=== PATIENT | female | born 1980 | race Caucasian/White ===

== ENCOUNTER → 2017-07-13 18:24 | Outpatient (CLI) | payer OTHER, SELFPAY | PROVIDERS: PCP Family Medicine; Visit Provider Obstetrics & Gynecology | DX: O60.03 Preterm labor without delivery, third trimester (principal); Z3A.33 33 weeks gestation of pregnancy | CPT/HCPCS: 59025; 81001; 99058; G0378 ==

== ENCOUNTER 2017-08-27 05:29 | Outpatient (CLI) | payer OTHER, SELFPAY | END 2017-08-27 06:45 | disposition home or self-care (01) | LOC: OB 08:53 | PROVIDERS: PCP Family Medicine; Visit Provider Family Medicine | DX: Z03.71 Encounter for suspected problem with amniotic cavity and membrane ruled out (principal); J45.909 Unspecified asthma, uncomplicated; E07.9 Disorder of thyroid, unspecified; Z3A.39 39 weeks gestation of pregnancy | CPT/HCPCS: 59025; 84112; G0378; G0379 ==

== ENCOUNTER 2017-08-29 05:50 | Inpatient (IN) | payer OTHER, SELFPAY ==
--- NOTE | 2017-08-29 | PATH_ITS ---
[facility] Accession Number: [id number] . 01 Material submitted: . BILATERAL FALLOPIAN TUBES . 02 Diagnosis: Bilateral Fallopian Tubes (Sterilization Procedure): No significant pathologic change. Single small unilateral paratubal cyst, negative for atypia. MRV/09/02/2017 . 02 Electronically signed: . Edy Medina MD, Pathologist NPI- [id number] . 01 Gross description: . The specimen is received in a container of formalin labeled with the patient's name, designated bilateral fallopian tubes. The specimen consists of what appears to be two complete fallopian tubes, both with fimbriated ends. Neither are identified as to right or left. The first fallopian tube measures 9.0 cm long with an average diameter of 0.7 cm. The serosal surface is glistening pink to purple. The fimbriated end is present. No nodules or cysts are grossly noted. There is a lumen. The serosal surface will be painted with blue ink. The opposite fallopian tube measures 9.2 x 0.6 x 0.7 cm. The serosal surface is glistening pink-amor, smooth and shiny. Near the proximal end there is a 0.5 cm clear fluid-filled paratubal cyst. Security Associate sections of each tube are submitted as: cassette A1 - cross section tube painted blue; cassette A2 - fimbriated end tube painted blue; cassette A3 - cross section opposite fallopian tube; cassette A4 - fimbriate end opposite fallopian tube. ([id number]) /MRV . 02 Pathologist provided ICD-10: Z30.2 . 02 CPT . 600278 Performed at: 01 [facility] [address] [place] [address] [id number] MD Dedrick Huitron MD Phone: [phone] Performed at: 02 [facility] [id number] [place] [address] [id number] MD Carlito Caceres MD Phone: [phone]
[2017-08-29 06:40] VITALS: BP 121/58
[2017-08-29 06:54] LABS: Add Manual Diff / Slide Review NO; Basophils Percent Auto 0.5 % (0-2); Eosinophils Percent Auto 1.1 % (2-4); Hematocrit 37.5 % (36-46); Hemoglobin 12.6 g/dL (12.0-16.0); Lymphocytes Percent Auto 16.4 % (25-40); Mean Corpuscular HGB Conc 33.6 % (30-36); Mean Corpuscular Hemoglobin 27.1 PG (26-34); Mean Corpuscular Volume 80.8 fL (80-100); Monocytes Percent Auto 7.4 % (3-14); Neutrophils Absolute Auto 8500 /uL (3000-5900); Neutrophils Percent Auto 74.6 % (50-75); Platelet Count 234 X10^3/uL (150-400); Red Blood Cell Count 4.64 X10^6/uL (4.0-5.2); Red Cell Distribution Width 13.7 % (11.6-14.8); White Blood Cell Count 11.4 X10^3/uL (4.5-11.0)
[2017-08-29 06:54] LABS: PTT Partial Thromboplastin Tim 26 SECONDS (26.4-36.2)
--- NOTE | 2017-08-29 07:51 | PM.PREOP ---
Pre-operative Note Interval Note Pre-op Check: History & Physical Reviewed by Physician
[2017-08-29] MEDS: CEFOTETAN 2 GM/50 ML PIGGYBACK IV (08:00)
--- NOTE | 2017-08-29 08:36 | SUR.OPER ---
Supine on padded OR bed, head on pillow, gel roll under right buttock, arms secured on padded arm boards at <90 degrees abduction, legs uncrossed, safety belt at thigh, tape over blanket over lower legs.
--- NOTE | 2017-08-29 09:02 | SUR.OPER ---
cord blood collected and sent with OB RN
--- NOTE | 2017-08-29 09:19 | SUR.OPER ---
FHT- 147, viable baby boy born at 0838
[2017-08-29] MEDS: LACTATED RINGERS 1,000 ML 42 ML IV ×2 (09:30→10:25)
[2017-08-29 09:36] VITALS: BP 120/70; PULSE 99; RESP 25; TEMP 36.3; O2SAT 94
[2017-08-29 09:40] VITALS: BP 129/65; PULSE 99; RESP 14; O2SAT 96
[2017-08-29 09:46] VITALS: BP 122/63; PULSE 104; RESP 19; O2SAT 94
[2017-08-29 09:51] VITALS: BP 131/61; PULSE 101; RESP 16; O2SAT 92
--- NOTE | 2017-08-29 09:54 | SUR.PHASEI ---
report called to yvrose Davenport
[2017-08-29 09:55] VITALS: BP 122/72; PULSE 90; RESP 12; O2SAT 94
[2017-08-29] MEDS: DEXTROSE 5%-LACTATED RINGERS 1,000 ML 100 ML IV ×2 (10:33→20:52)
--- NOTE | 2017-08-29 10:40 | PM.GYNOP.1 ---
Operative Date/Time/Diagnoses - Date of procedure: 08/29/17 Time of procedure: 10:40 Pre-op diagnosis: Intrauterine at 39 weeks gestation Previous section MTHFR gene mutation positive Desires permanent sterilization Crohn's disease Post-op diagnosis: same Procedure: Procedures Operation Date: 08/29/17 07:45 Actual Procedures Side Surgeon p Section - Repeat w/revision of scar and removal of both tubes Not Applicable Alyx Stockton MD Repeat section Revision of scar Bilateral salpingectomy Indications: 39 weeks gestation Crohn's disease Previous section Desires permanent sterilization Keloid scar MTHFR gene mutation Surgeon: Alyx Stockton Emergency Specialist: Luis Ernst Anesthesia Type: Spinal (With Duramorph) Operative Notes Findings: Live male Normal uterus tubes and ovaries Keloid scar Closure Type: primary Specimen(s): left tube, right tube and other (Cord blood, placenta) Applied: catheter Estimated blood loss (mL): 400 Blood products transfused: none Procedure in detail: The patient was taken to the operating room where she was placed in the seated position. Spinal anesthesia with Duramorph was administered. The patient was then placed in the dorsal supine position with a leftward tilt. She was prepped and draped in the usual sterile fashion. A timeout was performed. After spinal analgesia was found to be adequate, the previous scar was excised in an elliptical fashion and the incision was carried down to the underlying layer of fascia. The fascia was nicked in the midline, and the incision extended bilaterally with the Hernandez scissors. The superior aspect of the fascial incision was grasped with a Janene clamps, elevated, and the underlying rectus muscles dissected off sharply and bluntly. Attention was then turned to the inferior aspect of this incision which in a similar fashion was grasped with a [place] clamps, elevated, and the underlying rectus muscles dissected off sharply and bluntly. The rectus muscles were in the midline. The peritoneum was identified, grasped between 2 hemostats, and entered sharply with the Metzenbaum scissors. This incision was extended superiorly and inferiorly with good visualization of the bladder. The bladder blade was inserted. The vesicouterine peritoneum was identified, grasped with the pickup, and entered sharply with the Metzenbaum scissors. This incision was extended bilaterally, and the bladder flap was created digitally. The bladder blade was reinserted. The lower uterine segment was found to be very thin, and was incised in a transverse fashion with the scalpel. Upon entering the amniotic sac there was moderate amount of clear amniotic fluid. The 's head was delivered with vacuum assistance. The nose and mouth were suctioned with bulb suction. The remainder of the body delivered without difficulty. The cord was double clamped and cut. The was handed off to waiting RN and RT. Cord bloods were obtained. The placenta was delivered manually. The uterus was cleared of all clots and debris. The uterine incision was repaired with #1 chromic in a running interlocking fashion, and a second layer the same suture was used for an imbricating layer. Hemostasis was achieved. The tubes and ovaries were examined and were found to be normal. The gutters were cleared of all clots and debris. The tubes were excised using the PlasmaKinetic with settings at 40 w, all the way to the cornu of the uterus. The bladder flap was reapproximated using 2-0 Vicryl in a running fashion. The parietal peritoneum was closed using 2-0 Vicryl in a running fashion. The fascia was reapproximated using 0 Vicryl in a running fashion. The subcutaneous layer was copiously irrigated with warm normal saline. 5 simple interrupted sutures of 3-0 Vicryl were placed to reapproximate the subcutaneous layer in 2 separate layers. The skin was closed with 4-0 undyed Vicryl in a subcuticular fashion. Steri-Strips were placed. An Aquacell dressing was placed. The uterus was expressed of a small amount of old blood. Sponge, lap, and instrument counts were correct x-2. The patient tolerated the procedure well, and was taken to PACU in stable condition. Complications: none Post-operative Condition: stable Disposition: PACU Plan for aftercare: To [facility]
--- NOTE | 2017-08-29 10:49 | P.OP_ITS ---
Operative Date/Time/Diagnoses - Date of procedure: 08/29/17 Time of procedure: 10:40 Pre-op diagnosis: Intrauterine at 39 weeks gestation Previous section MTHFR gene mutation positive Desires permanent sterilization Crohn's disease Post-op diagnosis: same Procedure: Procedures Operation Date: 08/29/17 07:45 Actual Procedures Side Surgeon p Section - Repeat w/revision of scar and removal of both tubes Not Applicable Alyx Stockton MD Repeat section Revision of scar Bilateral salpingectomy Indications: 39 weeks gestation Crohn's disease Previous section Desires permanent sterilization Keloid scar MTHFR gene mutation Surgeon: Alyx Stockton Tiler'S Assistant: Luis Ernst Anesthesia Type: Spinal (With Duramorph) Operative Notes Findings: Live male Normal uterus tubes and ovaries Keloid scar Closure Type: primary Specimen(s): left tube, right tube and other (Cord blood, placenta) Applied: catheter Estimated blood loss (mL): 400 Blood products transfused: none Procedure in detail: The patient was taken to the operating room where she was placed in the seated position. Spinal anesthesia with Duramorph was administered. The patient was then placed in the dorsal supine position with a leftward tilt. She was prepped and draped in the usual sterile fashion. A timeout was performed. After spinal analgesia was found to be adequate, the previous scar was excised in an elliptical fashion and the incision was carried down to the underlying layer of fascia. The fascia was nicked in the midline, and the incision extended bilaterally with the Hernandez scissors. The superior aspect of the fascial incision was grasped with a Janene clamps, elevated, and the underlying rectus muscles dissected off sharply and bluntly. Attention was then turned to the inferior aspect of this incision which in a similar fashion was grasped with a [place] clamps, elevated, and the underlying rectus muscles dissected off sharply and bluntly. The rectus muscles were in the midline. The peritoneum was identified, grasped between 2 hemostats, and entered sharply with the Metzenbaum scissors. This incision was extended superiorly and inferiorly with good visualization of the bladder. The bladder blade was inserted. The vesicouterine peritoneum was identified, grasped with the pickup, and entered sharply with the Metzenbaum scissors. This incision was extended bilaterally, and the bladder flap was created digitally. The bladder blade was reinserted. The lower uterine segment was found to be very thin, and was incised in a transverse fashion with the scalpel. Upon entering the amniotic sac there was moderate amount of clear amniotic fluid. The ' s head was delivered with vacuum assistance. The nose and mouth were suctioned with bulb suction. The remainder of the body delivered without difficulty. The cord was double clamped and cut. The infant was handed off to waiting RN and RT. Cord bloods were obtained. The placenta was delivered manually. The uterus was cleared of all clots and debris. The uterine incision was repaired with #1 chromic in a running interlocking fashion, and a second layer the same suture was used for an imbricating layer. Hemostasis was achieved. The tubes and ovaries were examined and were found to be normal. The gutters were cleared of all clots and debris. The tubes were excised using the PlasmaKinetic with settings at 40 w, all the way to the cornu of the uterus. The bladder flap was reapproximated using 2-0 Vicryl in a running fashion. The parietal peritoneum was closed using 2-0 Vicryl in a running fashion. The fascia was reapproximated using 0 Vicryl in a running fashion. The subcutaneous layer was copiously irrigated with warm normal saline. 5 simple interrupted sutures of 3- 0 Vicryl were placed to reapproximate the subcutaneous layer in 2 separate layers. The skin was closed with 4-0 undyed Vicryl in a subcuticular fashion. Steri-Strips were placed. An Aquacell dressing was placed. The uterus was expressed of a small amount of old blood. Sponge, lap, and instrument counts were correct x-2. The patient tolerated the procedure well, and was taken to PACU in stable condition. Complications: none Post-operative Condition: stable Disposition: PACU Plan for aftercare: To [facility]
[2017-08-29] MEDS: NALBUPHINE 20 MG/ML AMPUL 5 MG IV (12:00)
[2017-08-29] MEDS: diphenhydrAMINE 50 MG/ML VIAL 25 MG IV ×2 (13:29→21:04)
[2017-08-29] MEDS: KETOROLAC 30 MG/ML VIAL IV ×2 (15:10→20:51)
[2017-08-29] MEDS: OXYCODONE/ACETAMINOPHEN 5/325 TABLET 1 TAB PO (15:11)
[2017-08-29] MEDS: OXYCODONE/ACETAMINOPHEN 5/325 TABLET 2 TAB PO ×2 (18:49→23:08)
[2017-08-29] MEDS: LANOLIN OINT 7 GM 1 APPLIC TOP (18:50)
[2017-08-29] MEDS: FLUTICASONE/SALMETEROL 250/50 14 PUFF DISKUS INH (18:50)
[2017-08-30] MEDS: KETOROLAC 30 MG/ML VIAL IV (02:48)
[2017-08-30] MEDS: OXYCODONE/ACETAMINOPHEN 5/325 TABLET 2 TAB PO ×4 (02:49→17:31)
[2017-08-30] MEDS: DEXTROSE 5%-LACTATED RINGERS 1,000 ML 100 ML IV (05:52)
[2017-08-30] MEDS: LEVOTHYROXINE 100 MCG TABLET PO (06:11)
[2017-08-30] MEDS: LEVOTHYROXINE 75 MCG TABLET PO (06:11)
[2017-08-30 07:23] LABS: Hematocrit 32.2 % (36-46); Hemoglobin 10.9 g/dL (12.0-16.0)
[2017-08-30] MEDS: FLUTICASONE/SALMETEROL 250/50 14 PUFF DISKUS INH ×2 (07:43→20:14)
[2017-08-30] MEDS: IBUPROFEN 600 MG TABLET PO ×3 (08:49→20:51)
[2017-08-30] MEDS: DOCUSATE 250 MG CAPSULE PO (08:49)
[2017-08-30] MEDS: PRENATAL VIT,CALC/IRON/FOLIC 1 TABLET 1 TAB PO (08:49)
[2017-08-30] MEDS: diphenhydrAMINE 25 MG TABLET PO (09:37)
[2017-08-30] MEDS: OXYCODONE IR 5 MG TABLET 10 MG PO ×2 (09:45→16:38)
--- NOTE | 2017-08-30 09:50 | P.PNOB_ITS ---
Subjective - OB Patient comments: incisional pain baby status: doing well [place] feeding status: exclusively breast feeding Narrative: Patient's pain is not well controlled. Will try additional Percolone. Patient is having itching and a slight rash on her abdomen. She will be started on p.o. Benadryl. Patient has been able to ambulate and urinate since removal of the catheter. Date Patient Seen: 08/30/17 Time Patient Seen: 09:46 Exam Vital Signs (past 8 hours): Pulse Oximetry 94 Oxygen Delivery Method Room Air Narrative Exam Narrative: Blood pressure 121/83, pulse of 88, temperature 95.9?. Abdomen is soft, nontender. Uterus is firm, at U, appropriately tender. Dressing is clean dry and intact. Mild lochia. Extremities with trace edema, nontender. Objective Labs Result Diagrams: 08/30/17 06:55 Labs: Laboratory Results - last 24 hr 08/30/17 06:55 Hgb 10.9 L Hct 32.2 L Assessment & Plan (1) Delivery by section of full-term : Status: Acute Current Visit: Yes Plan day: 1 plan OB: routine care Comments: Will attempt to get patient's pain under more control and itching under control with Benadryl. Patient is going to be continuing on her Lovenox . Time Spent With Patient Total time spent is greater than 50% in coordination of care (as documented) at patient's floor/unit and/or counseling patient: less than 15 minutes
[2017-08-30] MEDS: OXYCODONE/ACETAMINOPHEN 5/325 TABLET 1 TAB PO (21:48)
[2017-08-30] MEDS: OXYCODONE IR 5 MG TABLET PO (22:49)
[2017-08-31] MEDS: OXYCODONE/ACETAMINOPHEN 5/325 TABLET 2 TAB PO (01:39)
[2017-08-31] MEDS: IBUPROFEN 600 MG TABLET PO ×2 (04:29→11:04)
[2017-08-31] MEDS: OXYCODONE IR 5 MG TABLET 10 MG PO (05:00)
[2017-08-31] MEDS: LEVOTHYROXINE 100 MCG TABLET PO (06:27)
[2017-08-31] MEDS: LEVOTHYROXINE 75 MCG TABLET PO (06:28)
--- NOTE | 2017-08-31 08:32 | P.DS_ITS ---
History of Present Illness Chief complaint: repeat [facility] [id number] Narrative: Maylin Soliman is a 37 year old female Discharge Providers Date of admission: 08/29/17 05:50 Primary care physician: Jens Meade DO Consults: 08/30/17 05:41 Consult to Electric Mule Driver Routine Comment: Discharge provider: Harsha Aly MD Summary Discharge Diagnosis: Delivery of term male via routine post C- section care with difficulty with pain control. Hospital Course: Patient was admitted to the hospital for repeat section. was 1 uneventful. Patient had a tubal ligation. Postoperatively patient did well. Postoperatively day 1 [place] catheter was removed. She was up ambulating and tolerating her diet she had some incisional pain and required extra pain medication. Postop day 2. Pain was much better controlled breast-feeding was going a little better although she was having some difficulty with nipple scabbing and irritation so she was breast pumping. Her vital signs remained stable. Vaginal bleeding was appropriate. During her hospital stay she was started back on Lovenox on postoperative day 2. She will remain on this and have a follow-up appointment with Dr. Stockton in 7 days. Status at Discharge Functional status at discharge: independent ambulation Overall status at discharge: patient is progressing back to baseline Time Spent with Patient Less than 30 minutes Exam Vital Signs (past 8 hours): Pulse Oximetry 94 Oxygen Delivery Method Room Air Narrative Exam Narrative: General: Alert no apparent distress. Affect is appropriate. [place]quan it is uncomfortable. HEENT: Neck is supple without lymphadenopathy pupils equal round and reactive. Cardio: S1-S2 regular rate and rhythm. Respiratory: Lungs clear to auscultation. Abdomen: Uterus firm. Incision clean dry and intact. Extremities: Normal deep tendon reflexes trace edema. Objective Labs Result Diagrams: 08/30/17 06:55 Discharge Plan Discharge Plan Patient Disposition: Home, Self-Care Discharge comment: Home to follow up with Dr. Stockton in 7 days Discharge Med Rec/Prescriptions Prescriptions: New albuterol sulfate [Ventolin HFA] 90 mcg/actuation Hfa Aerosol Inhaler 2 puff INHALATION QID PRN (Reason: Wheezing) Qty: 6.7 RF: 0 acetaminophen 325 mg Tablet 650 mg PO Q6HR PRN (Reason: As Needed For Fever/Mild Pain) Qty: 30 RF: 0 ibuprofen 600 mg Tablet 600 mg PO Q6HR PRN (Reason: As Needed For Fever/Mild Pain) Qty: 30 RF: 0 oxycodone 5 mg Tablet 10 mg PO Q6H PRN (Reason: Pain, Severe) Qty: 40 RF: 0 enoxaparin [Lovenox] 40 mg/0.4 mL Syringe 40 mg Sub-Q DAILY Qty: 4 RF: 0 docusate sodium [Colace] 100 mg capsule 100 mg PO BID Qty: 30 RF: 0 Continue folic acid-vit B6-vit B12 [Folbic] 1 EACH tablet 1 tab PO QDAY Qty: 30 RF: 6 vit-iron fum-folic ac [Mynatal] 1 EACH capsule 1 cap PO QDAY Qty: 0 RF: 0 ferrous sulfate [Iron (ferrous sulfate)] 325 MG tablet 325 mg PO DAILY Qty: 0 RF: 0 aspirin 81 MG tablet,chewable 81 mg PO DAILY Qty: 0 RF: 0 fluticasone-salmeterol [Advair Diskus] 250 MCG/50 MCG blister with device 1 puff INH BID Qty: 60 RF: 0 albuterol sulfate [Ventolin HFA] 90 MCG/PUFF HFA aerosol inhaler 2 puff INH QIDP PRNQty: 1 RF: 0 omeprazole 20 mg capsule,delayed release(DR/EC) 20 mg PO QDAY@0600 Qty: 30 RF: 1 levothyroxine 50 MCG tablet 175 mcg PO QAM RF: 0 Discontinued cyclobenzaprine 10 MG tablet 10 mg PO TIDP PRNQty: 30 RF: 0 heparin (porcine) 5,000 unit/mL (1 mL) cartridge 5,000 unit SUBCUT BID 28 Days Qty: 56 RF: 0 Provider Discharge Instructions Diet comment: General diet Activity: Activity as tolerated Wound Care Report to your healthcare provider any signs of infection, such as:: chills, fever, night sweats, increased pain and unusual drainage Dressing: Leave on until doctor's visit in 7 days Discharge Data Primary Care Provider: Jens Meade Attending Provider: Alyx Stockton Admit Date/Time: 08/29/17 05:50
[2017-08-31] MEDS: OXYCODONE/ACETAMINOPHEN 5/325 TABLET 1 TAB PO (08:40)
[2017-08-31] MEDS: PRENATAL VIT,CALC/IRON/FOLIC 1 TABLET 1 TAB PO (08:40)
[2017-08-31] MEDS: FLUTICASONE/SALMETEROL 250/50 14 PUFF DISKUS INH (08:41)
[2017-08-31] MEDS: ENOXAPARIN 40 MG/0.4 ML SYRINGE SUBCUT (08:42)
[2017-08-31] MEDS: DOCUSATE 250 MG CAPSULE PO (08:42)
== END 2017-08-31 11:45 | disposition home or self-care (01) | DRG 765 ==
PROVIDERS: Admitting Provider Obstetrics & Gynecology; PCP Family Medicine; Visit Provider Obstetrics & Gynecology
PROC: 10D00Z1 Extraction of Products of Conception, Low, Open Approach (ICD-10-PCS; CPT 59514; principal; 2017-08-29 07:45)
DX: O34.219 Maternal care for unspecified type scar from previous cesarean delivery (principal); E72.12 Methylenetetrahydrofolate reductase deficiency; Z3A.39 39 weeks gestation of pregnancy; Z37.0 Single live birth; O99.284 Endocrine, nutritional and metabolic diseases complicating childbirth; E03.9 Hypothyroidism, unspecified; O99.52 Diseases of the respiratory system complicating childbirth; J45.909 Unspecified asthma, uncomplicated; Z30.2 Encounter for sterilization; O99.62 Diseases of the digestive system complicating childbirth; L29.9 Pruritus, unspecified
CPT/HCPCS: 36415; 58611; 59050; 59510; 59514; 85014; 85018; 85025; 85730; 86850; 86900; 86901; 88302; J0131; J1170; J1200; J1650; J1885; J2274; J2300; J7121

== ENCOUNTER → 2017-10-08 12:02 | Outpatient (CLI) | payer OTHER, SELFPAY | PROVIDERS: PCP Family Medicine; Visit Provider Obstetrics & Gynecology | DX: R30.0 Dysuria (principal) | CPT/HCPCS: 87086 ==

== ENCOUNTER → 2017-10-22 11:09 | Outpatient (CLI) | payer OTHER, SELFPAY ==
--- NOTE | 2017-10-22 11:11 | DI.RAD.S_ITS ---
PROCEDURE: XR FOOT RT MIN 3V INDICATIONS: Foot pain TECHNIQUE: 3 views of the foot were acquired. COMPARISON: None. FINDINGS: Bones: No fractures or dislocations. No suspicious bony lesions. Soft tissues: No tibiotalar joint effusion. Achilles tendon appears normal. IMPRESSION: No fracture. No osseous lesion. If symptoms and/or clinical suspicion for pathology persists, further assessment with repeat radiographs (7-10 days) or advanced imaging (e.g. CT, MRI or bone scan) may be helpful. Dictated by: Sandra Levi MD, PhD on 10/22/2017 at 11:33 Approved by: Sandra Levi MD, PhD on 10/22/2017 at 11:34
== END ==
PROVIDERS: PCP Family Medicine; Visit Provider Physician Assistant
DX: M79.671 Pain in right foot (principal)
CPT/HCPCS: 73630

== ENCOUNTER → 2018-08-08 10:19 | Outpatient (CLI) | payer OTHER, SELFPAY | PROVIDERS: PCP Physician Assistant | DX: R30.0 Dysuria (principal); B37.3 Candidiasis of vulva and vagina | CPT/HCPCS: 87086 ==

== ENCOUNTER → 2018-08-08 10:44 | Outpatient (CLI) | payer OTHER, SELFPAY ==
[2018-08-08 11:54] LABS: Hemoglobin A1C% w Est Avg Glu 5.5 % (4.0-6.0)
[2018-08-08 12:06] LABS: Glucose 88 mg/dL (70-100)
[2018-08-08 12:39] LABS: Thyroid Stimulating Hormone 5.88 uIU/mL (0.47-4.68)
== END ==
PROVIDERS: PCP Physician Assistant
DX: B37.3 Candidiasis of vulva and vagina (principal); E03.9 Hypothyroidism, unspecified; R30.0 Dysuria
CPT/HCPCS: 36415; 82947; 83036; 84443; 87086

== ENCOUNTER → 2018-10-29 14:49 | Outpatient (CLI) | payer OTHER, SELFPAY ==
[2018-10-29 15:22] LABS: Add Manual Diff / Slide Review NO; Basophils Absolute Auto 100 /uL (0-100); Eosinophils Absolute Auto 200 /uL (0-450); Eosinophils Percent Auto 2.2 % (2-4); Hematocrit 41.6 % (36-46); Hemoglobin 13.5 g/dL (12.0-16.0); Lymphocytes Absolute Auto 2300 /uL (1100-4500); Lymphocytes Percent Auto 27.2 % (25-40); Mean Corpuscular HGB Conc 32.6 % (30-36); Mean Corpuscular Hemoglobin 26.6 PG (26-34); Mean Corpuscular Volume 81.7 fL (80-100); Monocytes Absolute Auto 600 /uL (0-900); Monocytes Percent Auto 7.4 % (3-14); Neutrophils Absolute Auto 5200 /uL (1500-7000); Neutrophils Percent Auto 62.2 % (50-75); Platelet Count 310 X10^3/uL (150-400); Red Blood Cell Count 5.09 X10^6/uL (4.0-5.2); Red Cell Distribution Width 12.1 % (11.6-14.8); White Blood Cell Count 8.3 X10^3/uL (4.5-11.0)
[2018-10-29 15:48] LABS: HEMOLYSIS < 15 (0-50); Iron 70 ug/dL (37-170)
[2018-10-29 15:50] LABS: Alanine Aminotransferase 17 IU/L (9-52); Albumin 4.2 g/dL (3.5-5.0); Albumin Globulin Ratio 1.4 (1.0-2.8); Alkaline Phosphatase 67 U/L (38-126); Aspartate Aminotransferase 19 IU/L (14-36); BUN Creatinine Ratio 24.3 (6-22); Bilirubin Total 0.2 mg/dL (0.2-1.3); Blood Urea Nitrogen 17 mg/dL (7-17); Calcium 9.6 mg/dL (8.4-10.2); Carbon Dioxide 27 mmol/L (22-32); Chloride 103 mmol/L (98-107); Estimated Glomerular Filt Rate > 60.0 mL/min (>60); Globulin 2.9 g/dL (1.7-4.1); Glucose 105 mg/dL (70-100); HEMOLYSIS < 15 (0-50); Potassium 3.9 mmol/L (3.4-5.1); Sodium 140 mmol/L (137-145); Total Protein 7.1 g/dL (6.3-8.2)
[2018-10-29 15:53] LABS: Erythrocyte Sedimentation Rate 6 MM/HR (0-20)
[2018-10-29 15:59] LABS: Percent Iron Saturation 23 % (15-50); Total Iron Binding Capacity 299 ug/dL (265-497); Transferrin 250 mg/dL (206-381)
[2018-10-29 16:06] LABS: Free T3, Triiodothyronine Free 3.85 pg/mL (2.77-5.27); Free T4, Direct Thyroxine 1.24 ng/dL (0.78-2.19)
[2018-10-29 16:15] LABS: Vitamin D 25 Hydroxy (D3) 23.9 ng/mL (30.0-100.0)
[2018-10-29 16:20] LABS: Thyroid Stimulating Hormone 0.02 uIU/mL (0.47-4.68)
[2018-10-29 16:23] LABS: Ferritin 29.2 ng/mL (6.27-137)
[2018-10-29 16:37] LABS: Vitamin B12 365 pg/mL (239-931)
== END ==
PROVIDERS: PCP Physician Assistant; Visit Provider Physician Assistant
DX: D50.9 Iron deficiency anemia, unspecified (principal); E03.9 Hypothyroidism, unspecified; K50.919 Crohn's disease, unspecified, with unspecified complications; R79.89 Other specified abnormal findings of blood chemistry
CPT/HCPCS: 36415; 80053; 82306; 82607; 82728; 83540; 83550; 84439; 84443; 84481; 85025; 85651

== ENCOUNTER 2018-12-30 14:54 | Emergency (ER) | payer OTHER, SELFPAY ==
[2018-12-30 15:02] VITALS: BP 136/78; PULSE 80; RESP 13; TEMP 36.4; O2SAT 99
[2018-12-30 15:24] LABS: RBC Urine 5-10/HPF (0-5/HPF); Squamous Epithelial Cell Urine 5-10 /HPF (0-5/HPF); WBC Urine 0-1/HPF (0-5/HPF)
[2018-12-30 15:25] LABS: Bacteria Urine Moderate (10-30); Culture Indicated Urine Cult Not Indicated; Mucus Urine 1+ (Negative)
--- NOTE | 2018-12-30 15:42 | ED_ITS ---
HPI - Abdominal Pain General Chief Complaint: Abdominal Pain Stated Complaint: ABD PAIN PELVIC PAIN Time Seen by Provider: 12/30/18 15:41 Source: patient Mode of arrival: Ambulatory Limitations: no limitations History of Present Illness HPI narrative: This is a 38-year-old female comes to the emergency department co mplaining of suprapubic pain. Patient states this been on off for couple weeks it has been sort of intermittent but now has become constant and more uncomfortable. Patient denies any fevers. She has felt more fatigued and just sort of tired. She denies any chills. She denies any nausea or vomiting. She has been having normal bowel movements. She denies any frequency dysuria urgency or frequency. She states she has a bit of discomfort kind of across the abdomen and suprapubically. She has some mild low back pain but states she always has back pain. Patient does have a history significant for a neurogenic bladder and had a stimulator her bladder, she states the batteries been for about 4 years and she was urinating without much issue so they did not replace it. Patient has had 2 C sections, she has had a tubal lytes K burgos and has had a fusion in her back. She has remote history of asthma. She has not been taking anything for pain regularly. Related Data Home Medications Medication Instructions Recorded Confirmed aspirin 81 mg PO DAILY #0 06/17/17 11/05/18 Ibuprofen 200 mg See Rx Instructions .ROUTE .COMPLEX 01/13/18 11/05/18 mupirocin 2 % topical ointment 1 applictn TOP BID PRN 10/29/18 11/05/18 Previous Rx's Medication Instructions Recorded albuterol sulfate [Ventolin HFA] 2 puff INHALATION QID PRN #6.7 gram 08/31/17 clobetasol 0.05 % topical ointment 1 applictn TOP DAILY #30 gram 01/31/18 fluticasone 250 mcg-salmeterol 50 1 inhalation INHALATION BID #60 06/05/18 mcg/dose blistr powdr for each inhalation fluconazole 150 mg tablet 150 mg PO DAILY #60 tab 08/08/18 buspirone 5 mg tablet 5 mg PO BID #60 tab 11/01/18 propranolol 10 mg tablet 30 mg PO BID PRN #270 tab 12/10/18 escitalopram oxalate 20 mg tablet 20 mg PO DAILY #90 tab 12/15/18 levothyroxine 137 mcg tablet 137 mcg PO DAILY #90 tab 12/23/18 metronidazole [Flagyl] 500 mg PO Q12H #14 tab 12/30/18 Allergies Allergy/AdvReac Type Severity Reaction Status Date / Time Penicillins [PENICILLINS] Allergy Severe Mild Verified 11/05/18 13:55 anaphylaxis theophylline [THEOPHYLLINE] Allergy Severe Anxiety Verified 11/05/18 13:55 cephalexin [From Keflex] Allergy Intermediate Mild Verified 11/05/18 13:55 anaphylaxis shellfish derived AdvReac Intermediate Uncontrollable Verified 11/05/18 13:55 vomiting and diarrhea Review of Systems Review of Systems ROS Unobtainable: All systems reviewed & are unremarkable except as noted in HPI and below Constitutional Constitutional: Denies chills, Denies fever(s), Denies lethargy, Denies weakness and Reports other (flushed) Gastrointestinal Gastrointestinal: Denies abdominal pain, Denies melena, Reports hematochezia, Denies change in bowel habits, Denies constipation, Reports cramping, Reports diarrhea (very small amounts), Denies loose stools, Denies nausea and Denies vomiting Genitourinary Genitourinary: Denies abnormal menses, Denies abnormal vaginal bleeding, Denies hematuria, Denies urinary frequency, Denies dysuria, Denies flank pain, Denies urinary incontinence, Denies urinary hesitancy, Denies urinary urgency and Denies vaginal discharge Musculoskeletal Musculoskeletal: Reports back pain (chronic 2nd to radiation/surgery) Integumentary/Breasts Skin/Breast: Denies rash Neurologic Neurologic: Denies weakness [facility] Medical History Presence of neurostimulator (Acute) S/P tubal ligation (Resolved 08/29/17) Surgical History S/P section (Resolved 08/29/17) Social History Smoking Status: Never smoker second hand exposure: No alcohol intake: current (wine or mixed drinks less than 3 glasses a week.) substance use type: does not use Social History Smoking Status: Never smoker second hand exposure: No alcohol intake: current (wine or mixed drinks less than 3 glasses a week.) substance use type: does not use Exam Narrative Exam Narrative: GENERAL: Alert and oriented x three, well-nourished, well- appearing female in no acute distress. HEENT: Head normocephalic, atraumatic, EOMI, pupils reactive, face symmetric, moist mucous membranes NECK: Supple, full range of motion CARDIOVASCULAR: Regular rate and rhythm without murmurs, rubs or gallops. RESPIRATORY: Breath sounds equal bilaterally, no wheezes rales or rhonchi. ABDOMEN: Soft, mild generalized suprapubic tenderness. Normoactive bowel sounds all 4 quadrants. No guarding or rebound, rigidity, no mass : No CVA tenderness. Female: external vaginal examl normal, no vaginal bleeding, positive for thin amor discharge, they are also very small of cottage cheese like discharge that is very white and alert, positive for cervical motion tenderness, no adnexal tenderness/mass. Bimanual exam is normal, no enlarged or tender uterus. Non-gravid. EXTREMITIES: Normal range of motion, no clubbing or edema. Neurovascularly intact NEUROLOGICAL: Cranial nerves II through XII grossly intact. Moving all extremities SKIN: Warm, dry, no petechiae, no rashes or lesions. Initial Vital Signs Initial Vital Signs: Vital Signs Temperature 97.6 F 12/30/18 15:02 Pulse Rate 80 12/30/18 15:02 Respiratory Rate 13 12/30/18 15:02 Blood Pressure 136/78 12/30/18 15:02 Pulse Oximetry 99 12/30/18 15:02 Course Orders Ordered: ED Orders 12/30/18 15:10 Test Urine Stat Urine Microscopic Stat 12/30/18 16:13 US pelvic complete Stat 12/30/18 16:22 Complete Blood Count AUTO DIFF Stat Comprehensive Metabolic Panel Stat Lipase Stat 12/30/18 18:00 Chlamydia/Gonorrhea RNA APTIMA Stat Genital Culture Stat Wet Prep Tric BV Meg Stat 12/30/18 19:07 Urine Culture Stat Vital Signs Vital signs: Vital Signs - 8 hr 12/30/18 15:02 Temperature 97.6 F Pulse Rate 80 Respiratory Rate 13 Blood Pressure 136/78 Pulse Oximetry 99 MDM - Abdominal Pain Lab Data Attestation: I reviewed the patient's lab results. Result diagrams: 12/30/18 16:22 12/30/18 16:22 Labs: Lab Results 12/30/18 12/30/18 12/30/18 Range/Units 15:10 15:10 16:22 WBC 8.4 (4.5-11.0) X10^3/uL RBC 4.77 (4.0-5.2) X10^6/uL Hgb 12.9 (12.0-16.0) g/dL Hct 38.5 (36-46) % MCV 80.8 (80-100) fL MCH 27.0 (26-34) PG MCHC 33.5 (30-36) % RDW 13.3 (11.6-14.8) % Plt Count 292 (150-400) X10^3/uL Neut % (Auto) 63.1 (50-75) % Lymph % (Auto) 27.0 (25-40) % [place] % (Auto) 6.7 (3-14) % Eos % (Auto) 2.3 (2-4) % Baso % (Auto) 0.9 (0-2) % Neut # (Auto) 5300 (7069-3616) /uL Lymph # (Auto) 2300 (1043-5887) /uL [place] # (Auto) 600 (0-900) /uL Eos # (Auto) 200 (0-450) /uL Baso # (Auto) 100 (0-100) /uL Sodium (137-145) mmol/L Potassium (3.4-5.1) mmol/L Chloride (98-107) mmol/L Carbon Dioxide (22-32) mmol/L BUN (7-17) mg/dL Creatinine (0.52-1.04) mg/dL Estimated GFR (>60) mL/min BUN/Creatinine Ratio (6-22) Glucose (70-100) mg/dL Calcium (8.4-10.2) mg/dL Total Bilirubin (0.2-1.3) mg/dL AST (14-36) IU/L ALT (9-52) IU/L Alkaline Phosphatase (38-126) U/L Total Protein (6.3-8.2) g/dL Albumin (3.5-5.0) g/dL Globulin (1.7-4.1) g/dL Albumin/Globulin Ratio (1.0-2.8) Lipase (23-300) U/L Urine RBC 5-10/hpf H (0-5/HPF) Urine WBC 0-1/hpf (0-5/HPF) Ur Squamous Epith Cells 5-10 /hpf H (0-5/HPF) Urine Bacteria Moderate (10-30) H (None) Urine Mucus 1+ H (Negative) Ur Culture Indicated? Cult not indicated Urine Test Negative (Negative) 12/30/18 Range/Units 16:22 WBC (4.5-11.0) X10^3/uL RBC (4.0-5.2) X10^6/uL Hgb (12.0-16.0) g/dL Hct (36-46) % MCV (80-100) fL MCH (26-34) PG MCHC (30-36) % RDW (11.6-14.8) % Plt Count (150-400) X10^3/uL Neut % (Auto) (50-75) % Lymph % (Auto) (25-40) % [place] % (Auto) (3-14) % Eos % (Auto) (2-4) % Baso % (Auto) (0-2) % Neut # (Auto) (4151-1360) /uL Lymph # (Auto) (2623-7511) /uL [place] # (Auto) (0-900) /uL Eos # (Auto) (0-450) /uL Baso # (Auto) (0-100) /uL Sodium 137 (137-145) mmol/L Potassium 3.9 (3.4-5.1) mmol/L Chloride 101 (98-107) mmol/L Carbon Dioxide 28 (22-32) mmol/L BUN 17 (7-17) mg/dL Creatinine 0.80 (0.52-1.04) mg/dL Estimated GFR > 60.0 (>60) mL/min BUN/Creatinine Ratio 21.3 (6-22) Glucose 103 H (70-100) mg/dL Calcium 9.6 (8.4-10.2) mg/dL Total Bilirubin 0.2 (0.2-1.3) mg/dL AST 21 (14-36) IU/L ALT 19 (9-52) IU/L Alkaline Phosphatase 69 (38-126) U/L Total Protein 7.1 (6.3-8.2) g/dL Albumin 4.2 (3.5-5.0) g/dL Globulin 2.9 (1.7-4.1) g/dL Albumin/Globulin Ratio 1.4 (1.0-2.8) Lipase 102 (23-300) U/L Urine RBC (0-5/HPF) Urine WBC (0-5/HPF) Ur Squamous Epith Cells (0-5/HPF) Urine Bacteria (None) Urine Mucus (Negative) Ur Culture Indicated? Urine Test (Negative) Point of care testing: Urine Dip Bedside Urine Glucose Negative Bedside Urine Bilirubin - Negative Bedside Urine Ketone - Negative Urine Specific [place] 1.025 Bedside Urine Occult Blood + Bedside Urine pH 6.0 Bedside Urine Protein - Negative Bedside Urine Urobilinogen - Negative Bedside Urine Nitrite - Negative Bedside Urine Leukocytes - Negative Esterase Imaging Data pelvic US: Radiologist's impression: [address] [address] Ultrasound Report Signed Patient: Maylin Soliman [facility]#: [id number] : 1980Acct:[id number] Age/Sex: 38 / FDate of Service: 12/30/18 Loc: ED Accession Number: [id number] Procedure: US pelvic complete Ordering Provider: Faith Younger D.O. PROCEDURE: US PELVIC COMPLETE INDICATIONS: SUPRAPUBIC PAIN TECHNIQUE: Real-time scanning was performed of the pelvic organs, with image documentation. Additional endovaginal scanning was necessary due to incomplete visualization of the adnexal and endometrial structures by transabdominal scanning. COMPARISON: [facility], , PELVIC COMPLETE, 01/10/2017, 10:59. FINDINGS: Transabdominal scanning: Limited scanning through the kidneys shows no hydronephrosis. There is a small amount of free fluid in the pelvis. Endovaginal scanning: Uterus: Uterus measures 9.3 x 4.4 x 5.6 cm. The endometrium measures 1.0 cm in combined thickness. There is a section scar anteriorly in the lower uterine segment. A small amount of fluid is demonstrated within the scar. The cervix demonstrates mucosal thickening with a small amount of endocervical fluid. Ovaries: The right ovary measures 3.8 x 2.8 x 2.3 cm and the left ovary measures 3.8 x 2.1 x 2.3 cm. There is a thick walled cyst within the left ovary measuring up to 1.6 x 1.7 x 1.6 cm suggestive of a hemorrhagic or corpus luteal cyst. There is peripheral vascularity on color Doppler interrogation. There is a small hypoechoic thin- walled cyst in the right ovary measuring up to 1.9 x 1.9 x 1.6 cm likely representing a follicular cyst. IMPRESSION: 1., Small amount of fluid distending a section scar in the lower uterine segment. The finding is of indeterminate clinical significance with partial scar dehiscence not excluded. Recommend correlation clinically. 2. Mild mucosal thickening in the cervix with a small amount of endocervical fluid. The finding may represent an infectious or inflammatory process versus a mass lesion. Recommend correlation with direct visualization. 3. Thickwalled cyst in the left ovary likely representing a corpus luteal cyst. Dictated by: Dedrick Chappell M.D. on 12/30/2018 at 17:27 Approved by: Dedrick Chappell M.D. on 12/30/2018 at 17:34 she Discharge Plan Departure Patient Disposition: Home Clinical Impression: Cervicitis, Abdominal pain, suprapubic Discharge Date/Time: 12/30/18 18:23 Instructions: DI for Acute Cervicitis Activity Restrictions/Additional Instructions: Follow-up with primary care the next 3-5 days for recheck. You may take ibuprofen up to 800 mg every 8 hours and/or Tylenol up to a 1000 mg every 8 hours as needed for pain. Take antibiotics until gone, do not drink alcohol while taking these antibiotics as it will make you vomit. Return to the emergency department for fevers greater 100.4 F, worsening abdo jemima pain, flank pain, persistent vomiting, black or bloody stools, new changes to your stool, inability to urinate, painful urination or other new or concerning symptoms. Prescriptions: New metronidazole [Flagyl] 500 mg tablet 500 mg PO Q12H Qty: 14 RF: 0 No Action Ibuprofen 200 mg See Rx Instructions .ROUTE .COMPLEX RF: 0 aspirin 81 MG tablet,chewable 81 mg PO DAILY Qty: 0 RF: 0 clobetasol 0.05 % ointment 1 applictn TOP DAILY Qty: 30 RF: 1 fluticasone propion-salmeterol 250-50 mcg/dose blister with device 1 inhalation INHALATION BID Qty: 60 RF: 6 buspirone 5 mg tablet 5 mg PO BID Qty: 60 RF: 1 propranolol 10 mg tablet 30 mg PO BID PRN (Reason: anxiety) Qty: 270 RF: 3 escitalopram oxalate 20 mg tablet 20 mg PO DAILY Qty: 90 RF: 0 levothyroxine 137 mcg tablet 137 mcg PO DAILY Qty: 90 RF: 3 fluconazole [Diflucan] 150 mg tablet 150 mg PO DAILY Qty: 60 RF: 1 mupirocin 2 % ointment 1 applictn TOP BID PRNRF: 0 albuterol sulfate [Ventolin HFA] 90 mcg/actuation Hfa Aerosol Inhaler 2 puff INHALATION QID PRN (Reason: Wheezing) Qty: 6.7 RF: 0 Referrals: Geni Tomas PA-C [Primary Care Provider] -
--- NOTE | 2018-12-30 16:13 | DI.US.S_ITS ---
PROCEDURE: US PELVIC COMPLETE INDICATIONS: SUPRAPUBIC PAIN TECHNIQUE: Real-time scanning was performed of the pelvic organs, with image documentation. Additional endovaginal scanning was necessary due to incomplete visualization of the adnexal and endometrial structures by transabdominal scanning. COMPARISON: [facility], US, PELVIC COMPLETE, 01/10/2017, 10:59. FINDINGS: Transabdominal scanning: Limited scanning through the kidneys shows no hydronephrosis. There is a small amount of free fluid in the pelvis. Endovaginal scanning: Uterus: Uterus measures 9.3 x 4.4 x 5.6 cm. The endometrium measures 1.0 cm in combined thickness. There is a section scar anteriorly in the lower uterine segment. A small amount of fluid is demonstrated within the scar. The cervix demonstrates mucosal thickening with a small amount of endocervical fluid. Ovaries: The right ovary measures 3.8 x 2.8 x 2.3 cm and the left ovary measures 3.8 x 2.1 x 2.3 cm. There is a thick walled cyst within the left ovary measuring up to 1.6 x 1.7 x 1.6 cm suggestive of a hemorrhagic or corpus luteal cyst. There is peripheral vascularity on color Doppler interrogation. There is a small hypoechoic thin-walled cyst in the right ovary measuring up to 1.9 x 1.9 x 1.6 cm likely representing a follicular cyst. IMPRESSION: 1., Small amount of fluid distending a section scar in the lower uterine segment. The finding is of indeterminate clinical significance with partial scar dehiscence not excluded. Recommend correlation clinically. 2. Mild mucosal thickening in the cervix with a small amount of endocervical fluid. The finding may represent an infectious or inflammatory process versus a mass lesion. Recommend correlation with direct visualization. 3. Thickwalled cyst in the left ovary likely representing a corpus luteal cyst. Dictated by: Dedrick Chappell M.D. on 12/30/2018 at 17:27 Approved by: Dedrick Chappell M.D. on 12/30/2018 at 17:34
[2018-12-30 16:16] LABS: Pregnancy Test Urine Negative (Negative)
[2018-12-30 16:27] LABS: Add Manual Diff / Slide Review NO; Basophils Absolute Auto 100 /uL (0-100); Basophils Percent Auto 0.9 % (0-2); Eosinophils Absolute Auto 200 /uL (0-450); Eosinophils Percent Auto 2.3 % (2-4); Hematocrit 38.5 % (36-46); Hemoglobin 12.9 g/dL (12.0-16.0); Lymphocytes Absolute Auto 2300 /uL (1100-4500); Mean Corpuscular HGB Conc 33.5 % (30-36); Mean Corpuscular Volume 80.8 fL (80-100); Monocytes Absolute Auto 600 /uL (0-900); Monocytes Percent Auto 6.7 % (3-14); Neutrophils Absolute Auto 5300 /uL (1500-7000); Neutrophils Percent Auto 63.1 % (50-75); Platelet Count 292 X10^3/uL (150-400); Red Blood Cell Count 4.77 X10^6/uL (4.0-5.2); Red Cell Distribution Width 13.3 % (11.6-14.8); White Blood Cell Count 8.4 X10^3/uL (4.5-11.0)
[2018-12-30 16:39] LABS: Alanine Aminotransferase 19 IU/L (9-52); Albumin 4.2 g/dL (3.5-5.0); Albumin Globulin Ratio 1.4 (1.0-2.8); Alkaline Phosphatase 69 U/L (38-126); Aspartate Aminotransferase 21 IU/L (14-36); BUN Creatinine Ratio 21.3 (6-22); Bilirubin Total 0.2 mg/dL (0.2-1.3); Blood Urea Nitrogen 17 mg/dL (7-17); Calcium 9.6 mg/dL (8.4-10.2); Carbon Dioxide 28 mmol/L (22-32); Chloride 101 mmol/L (98-107); Estimated Glomerular Filt Rate > 60.0 mL/min (>60); Globulin 2.9 g/dL (1.7-4.1); Glucose 103 mg/dL (70-100); HEMOLYSIS < 15 (0-50); Lipase 102 U/L (23-300); Potassium 3.9 mmol/L (3.4-5.1); Sodium 137 mmol/L (137-145); Total Protein 7.1 g/dL (6.3-8.2)
== END 2018-12-30 18:23 | disposition home or self-care (01) ==
PROVIDERS: Emergency Provider Emergency Medicine; PCP Physician Assistant
DX: N72 Inflammatory disease of cervix uteri (principal); R10.2 Pelvic and perineal pain
CPT/HCPCS: 36415; 51798; 76830; 76856; 80053; 81003; 81015; 81025; 83690; 85025; 87070; 87205; 87210; 87491; 87591; 99283; 99284